=== PATIENT | female | born 1945 | race Caucasian/White ===

== ENCOUNTER → 2023-04-21 10:22 | Outpatient (REF) | payer MEDICARE, OTHER, SELFPAY | LOC: HWRAD 10:22 | PROVIDERS: ATTENDING PHYSICIAN Internal Medicine; FAMILY PHYSICIAN Physician Assistant Medical | DX: R06.02 Shortness of breath (principal) | CPT/HCPCS: 71046 ==

== ENCOUNTER → 2023-05-23 09:07 | Outpatient (REF) | payer MEDICARE, OTHER, SELFPAY | LOC: RAD 09:07 | PROVIDERS: ATTENDING PHYSICIAN Internal Medicine Gastroenterology; FAMILY PHYSICIAN Physician Assistant Medical | DX: K21.9 Gastro-esophageal reflux disease without esophagitis (principal) | CPT/HCPCS: 74246 ==

== ENCOUNTER → 2024-03-22 11:02 | Outpatient (REF) | payer MEDICARE, OTHER, SELFPAY | LOC: DHSLP 11:02 | PROVIDERS: ATTENDING PHYSICIAN Internal Medicine; FAMILY PHYSICIAN Physician Assistant Medical | DX: G47.33 Obstructive sleep apnea (adult) (pediatric) (principal) | CPT/HCPCS: 95800 ==

== ENCOUNTER → 2024-04-16 09:34 | Outpatient (REF) | payer MEDICARE, OTHER, SELFPAY | LOC: HWWDC 09:34 | PROVIDERS: ATTENDING PHYSICIAN Physician Assistant Medical | DX: Z12.31 Encounter for screening mammogram for malignant neoplasm of breast (principal) | CPT/HCPCS: 77063; 77067 ==

== ENCOUNTER → 2024-07-10 09:34 | Outpatient (REF) | payer MEDICARE, OTHER, SELFPAY | LOC: HWRAD 09:34 | PROVIDERS: ATTENDING PHYSICIAN Physician Assistant Medical; REFERRING PHYSICIAN Internal Medicine | DX: M81.0 Age-related osteoporosis without current pathological fracture (principal) | CPT/HCPCS: 77080 ==

== ENCOUNTER 2024-08-28 06:14 | Day surgery (SDC) | payer MEDICARE, OTHER, SELFPAY | END 2024-08-28 11:05 | disposition home or self-care (01) | LOC: GI 06:14 | PROVIDERS: ATTENDING PHYSICIAN Internal Medicine Gastroenterology | DX: Z12.11 Encounter for screening for malignant neoplasm of colon (principal); K57.30 Diverticulosis of large intestine without perforation or abscess without bleeding; D12.0 Benign neoplasm of cecum; K63.5 Polyp of colon; K62.1 Rectal polyp; Z86.0101 Personal history of adenomatous and serrated colon polyps | CPT/HCPCS: 45380; 88305 ==

== ENCOUNTER 2024-10-08 23:23 | Emergency (ER) | payer MEDICARE, OTHER, SELFPAY ==
[2024-10-08 23:35] VITALS: BP 117/97
[2024-10-09 00:45] LABS: ALT (SGPT) 33 U/L (0-35); AST (SGOT) 27 U/L (14-36); Albumin 4.1 g/dl (3.5-5.0); Alkaline Phosphatase 41 U/L (38-126); Blood Urea Nitrogen 13 mg/dl (7-17); Calcium 9.1 mg/dl (8.4-10.2); Carbon Dioxide 27 mmol/L (22-30); Chloride 109 mmol/L (98-107); Glucose 108 mg/dl (70-99); Potassium 4.1 mmol/L (3.5-5.1); Sodium 141 mmol/L (135-145); Total Protein 6.0 g/dl (6.3-8.2); eGFR > 60.00
[2024-10-09 00:54] LABS: Hematocrit 36.8 % (37.0-47.0); Hemoglobin 12.0 g/dL (12.0-16.0); Lipase 102 U/L (23-300); Mean Corp Hgb Conc. 32.6 g/dL (33.0-37.0); Mean Corpuscular Volume 93.2 fL (81.0-99.0); Nucleated Red Blood Cells % 0 %; Platelet Count 217 10^3/uL (130-400); Red Cell Dist. Width 13.0 % (11.5-14.5)
[2024-10-09 02:46] VITALS: BP 105/65
[2024-10-09 04:34] VITALS: BMI 25.0
[2024-10-09 05:02] VITALS: BP 104/83
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
[2024-10-09 05:40] VITALS: BP 104/83
== END 2024-10-09 05:40 | disposition home or self-care (01) ==
LOC: EMR 23:23
PROVIDERS: Student in an Organized Health Care Education/Training Program; EMERGENCY PHYSICIAN Emergency Medicine; FAMILY PHYSICIAN Physician Assistant Medical
DX: R41.0 Disorientation, unspecified (principal); G89.29 Other chronic pain; R10.9 Unspecified abdominal pain; E78.00 Pure hypercholesterolemia, unspecified; Z87.891 Personal history of nicotine dependence; G47.33 Obstructive sleep apnea (adult) (pediatric)
CPT/HCPCS: 99284; 70450; 80053; 83605; 83690; 85025

== ENCOUNTER → 2024-10-12 12:39 | Outpatient (REF) | payer MEDICARE, OTHER, SELFPAY | LOC: RAD 12:39 | PROVIDERS: ATTENDING PHYSICIAN Internal Medicine Gastroenterology; FAMILY PHYSICIAN Physician Assistant Medical | DX: R10.30 Lower abdominal pain, unspecified (principal) | CPT/HCPCS: 74177; Q9967 ==

== ENCOUNTER 2024-11-13 06:23 | Day surgery (SDC) | payer MEDICARE, OTHER, SELFPAY | END 2024-11-13 14:57 | disposition home or self-care (01) | LOC: GI 06:23 | PROVIDERS: ATTENDING PHYSICIAN Internal Medicine Gastroenterology | DX: Z12.11 Encounter for screening for malignant neoplasm of colon (principal); Q43.8 Other specified congenital malformations of intestine; R14.0 Abdominal distension (gaseous); K22.89 Other specified disease of esophagus; K44.9 Diaphragmatic hernia without obstruction or gangrene; K31.89 Other diseases of stomach and duodenum; D12.3 Benign neoplasm of transverse colon; D12.5 Benign neoplasm of sigmoid colon; K20.90 Esophagitis, unspecified without bleeding; Z86.0100 Personal history of colon polyps, unspecified | CPT/HCPCS: 45385; 45380; 43239; 88305; 88342 ==

== ENCOUNTER → 2024-11-16 13:45 | Outpatient (REF) | payer MEDICARE, OTHER, SELFPAY | LOC: RAD 13:45 | PROVIDERS: ATTENDING PHYSICIAN Internal Medicine Gastroenterology; FAMILY PHYSICIAN Physician Assistant Medical | DX: R14.0 Abdominal distension (gaseous) (principal) | CPT/HCPCS: 74177; Q9967 ==

== ENCOUNTER 2025-02-19 18:22 | Emergency (ER) | payer MEDICARE, OTHER, SELFPAY ==
[2025-02-19 18:23] VITALS: BP 144/79
--- NOTE | 2025-02-19 19:45 | ED.GENMED ---
History of Present Illness
General
Chief Complaint: Abdominal Symptoms
Time Seen by Provider: 02/19/25 18:35
History of Present Illness
History of Present Illness:
Gricel is a 79-year-old female with past medical history of SIBO, GERD, bronchitis who presents complaining of cough, congestion, nausea and vomiting that began while on a trip to [facility] earlier this week and subsequent syncope on the plane home
today. Denies any fevers or chills. Reports that syncope occurred as she was standing up on the plane. Has not really been able to tolerate an oral intake secondary to the nausea. is also sick with similar symptoms.
Past History
Past History
ED Past Medical History: GERD, Hypercholesterolemia and Other (Hiatal hernia, obstructive sleep apnea, chronic constipation, small intestine bacterial overgrowth, irritable bowel syndrome, insomnia, restless leg syndrome)
ED Past Surgical History: Other (Breast tumor benign removal)
Patient has exhibited threatening behavior?: No
Social History
Tobacco: Former smoker
Alcohol: Occasional
Drug: None
Personal:
Living: with family
Phy Exam
General Physical Exam
General Presentation: well appearing and no apparent distress
General Skin: warm and dry
General Habitus: normal
General Mental: alert
General Hydration: appears well hydrated
ENT Exam
ENT Exam: EOMI, pharynx normal, neck supple and normocephalic
Eye Exam
Eye Exam: PERRL, cornea clear and conjunctiva normal
Cardiovascular Exam
Cardiovascular Exam: regular rate/rhythm, no edema, no murmur and normal peripheral pulses
Pulmonary Exam
Pulmonary Exam: lungs clear, no respiratory distress, no rales, no crackles, no rhonchi, no stridor, no wheezing and no cough
Gastrointestinal Exam
Gastrointestinal Exam: normal bowel sounds, non tender, soft, no organomegaly, no pulsatile mass and non distended
Neurological Exam
Neurological Exam: alert, oriented x3, no motor deficits and speech normal
Musculoskeletal Exam
Musculoskeletal Exam: full ROM and no edema
Skin Exam
Skin Exam: normal color, warm/dry, no rash and no petechia
Psychiatric Exam
Psychiatric Exam: normal mood/affect
Course
Orders/Labs/Results
Orders:
Orders
02/19/25 18:31
EKG [Electrocardiogram (*1)] Urgent
Reason for Study: Syncope
EKG- Treatment ONCE
02/19/25 18:47
Ondansetron Orally Disint [Zofran Odt (Orally Disintegrating)] 4 mg PO NOW STA
CXR2 [CR Chest - 2 Views ] Urgent
Comment:
Reason For Exam: cough
02/19/25 20:09
COVID-19 Antigen Urgent
Source: Nasal Swab
Influenza A+B Rapid Molecular Urgent
SHIRA Source: Nasal Swab
Specimen Description:
02/19/25 20:37
Acetaminophen [Tylenol] 650 mg PO NOW STA
Ipratropium/Albuterol Sulfate [Duoneb] 3 ml INH R NOW STA
Vital Signs
Initial and Last Documented VS:
Initial Vital Signs
Temp Pulse Resp BP Pulse Ox
37.3 C 81 20 144/79 97
02/19/25 18:23 02/19/25 18:23 02/19/25 18:23 02/19/25 18:23 02/19/25 18:23
Last Documented Vital Signs
Temp Pulse Resp BP Pulse Ox
37.4 C 86 18 126/78 97
02/19/25 20:31 02/19/25 20:31 02/19/25 20:31 02/19/25 20:31 02/19/25 20:55
MDM/Problems Addressed
Differential Diagnosis Includes:
Chest x-ray obtained and negative for any pneumonia or volume overload. COVID and flu test sent and positive for flu A. Given Zofran with improvement in her nausea and now able to tolerate p.o. On reevaluation patient reports increase in cough
and request nebulizer treatment as she uses this at home for cough. Nebulizer given with improvement. Vital signs remained stable throughout ER course and she is stable for discharge home. Prescriptions for neb was given as she is out.
Prescription for Zofran also sent to her pharmacy. Return precautions discussed. Supportive care for flu also discussed
*Pulse Oximetry
SaO2: 97
Oxygen Mode of Delivery: Room air
Patient hypoxic: no
*Critical Care Note
Total Time (30-74mins, 75-104mins- exclusive of procedures): Not Applicable
ED Attending Note
-
Portions of this chart may have been created with voice recognition software.� Occasional wrong word or��sound alike� substitutions may have occurred due to the inherent limitations of voice recognition software.
Discharge Plan
Departure
Patient Disposition: Home (Routine Discharge)
Date of Disposition: 02/19/25
Time of Disposition: 20:51
Patient with high blood pressure during this ER visit?: No
Discharge Problem:
Influenza
Instructions: Flu in adults - ED (DC)
Prescriptions:
New
albuterol sulfate 1.25 mg/3 mL solution for nebulization
1.25 mg inhalation QID PRN (Reason: shortness of breath or wheezing) Qty: 75 0RF
ondansetron 4 mg tablet,disintegrating
4 mg PO Q8H 5 Days Qty: 15 0RF
No Action
Acetaminophen/Caffeine
2 tab PO BID@0800,1400
atorvastatin 20 MG tablet
20 mg PO DAILY
valacyclovir [Valtrex] 1,000 MG tablet
1,000 mg PO DAILYPRN PRN (Reason: cold sores)
clonazepam 0.5 MG tablet
0.5 mg PO DAILYPRN PRN (Reason: anxiety)
Patient Comments:
03/17/2020: last filled 01/06/20, 90 tabs for 90 days from [facility]
acetaminophen [Tylenol Extra Strength] 500 MG tablet
1,000 mg PO HS
calcium carbonate 600 MG tablet
600 mg PO BID
omeprazole 20 MG capsule,delayed release(DR/EC)
20 mg PO DAILY
zolpidem 10 MG tablet
10 mg PO HSPRN PRN (Reason: sleep)
Patient Comments:
03/17/2020: last filled 01/13/20, 90 tabs for 90 days from [facility]
bupropion HCl 300 MG tablet extended release 24 hr
300 mg PO DAILY
cholecalciferol (vitamin D3) 1,000 UNITS tablet
1,000 units PO DAILY
multivitamin with folic acid [Tab-A-Shira] 1 TABLET tablet
1 tab PO DAILY
hydrocodone-acetaminophen 1 TABLET tablet
1 tab PO Q4HPRN PRN (Reason: moderate to severe pain) 7 Days Qty: 42 0RF
prednisone 10 mg tablet
See Rx Instructions .ROUTE .COMPLEX Qty: 45 0RF
Rx Instructions:
5 tabs day 1-3, 4 tabs day 4-6, 3 tabs day 7-9, 2 tabs day 10-12, 1 tab day 13-15
ipratropium-albuterol 0.5 mg-3 mg(2.5 mg base)/3 mL solution for nebulization
3 ml inhalation Q4H PRN (Reason: shortness of breath or wheezing) Qty: 90 0RF
hydrocodone-homatropine [Hycodan] 5-1.5 mg/5 mL (5 mL) syrup
5 ml PO Q6H PRN (Reason: cough) Qty: 200 0RF
Referrals:
UNKNOWN - PT DOES,NOT KNOW [Unknown Provider]
Activity Restrictions/Additional Instructions:
Patient is positive for influenza A here in the ER. Is important to stay well-hydrated and rest while you have symptoms. You may take Tylenol or ibuprofen for any fevers. Prescription for albuterol has been sent to your pharmacy as well as
prescription for Zofran.
Interventions
Interventions:
*Risk Screen - Suicide Last Done: 02/19/25 18:23
*General Assessment Last Done: 02/19/25 18:23
*Neglect/Abuse Screening Last Done: 02/19/25 18:23
*ED COVID-19 Vaccine History Last Done: 02/19/25 18:23
*ED Influenza Vaccine History Last Done: 02/19/25 18:23
[facility] Fall Risk Assessment Tool Last Done: 02/19/25 20:28
*Nursing Disposition Last Done: 02/19/25 21:08
EX-Zwasro-Ijizgcksym Assessment Last Done: 02/19/25 20:55
ED- Cardiac Assessment Last Done: 02/19/25 20:55
ED- Neurological Assessment Last Done: 02/19/25 20:55
ED- Pulmonary Assessment Last Done: 02/19/25 20:55
Discharge Date and Time
Discharge Date/Time: 02/19/25 21:09
Print Language: LATVIAN
[2025-02-19] MEDS: ZOFRAN ODT (ORALLY DISINTEGRATING) 4 MG PO (20:07)
[2025-02-19 20:28] VITALS: BMI 24.9
[2025-02-19 20:31] VITALS: BP 126/78
[2025-02-19 20:39] LABS: COVID-19 Antigen Negative (Negative)
[2025-02-19] MEDS: TYLENOL 650 MG PO (20:49)
[2025-02-19] MEDS: DUONEB 3 ML INH (20:50)
== END 2025-02-19 21:09 | disposition home or self-care (01) ==
LOC: EMR 18:22
PROVIDERS: Surgery Trauma Surgery; EMERGENCY PHYSICIAN Emergency Medicine; FAMILY PHYSICIAN Physician Assistant Medical
DX: J10.1 Influenza due to other identified influenza virus with other respiratory manifestations (principal); E78.00 Pure hypercholesterolemia, unspecified; G47.33 Obstructive sleep apnea (adult) (pediatric); Z87.891 Personal history of nicotine dependence; Z11.52 Encounter for screening for COVID-19
CPT/HCPCS: 94640; 99285; 71046; 87502; 87811; 93005